=== PATIENT | female | born 1945 | race Caucasian/White ===

== ENCOUNTER → 2016-12-30 | Outpatient (CLI) | payer MEDICARE ==
[2014-08-19 12:16] VITALS: BP 164/77
[~2016-12-30] MED LIST: ASPI-482 PO; ASPI-630 PO; CETI10TA22 PO; CITA10TA4 PO; GABA600T2 PO; LOSA1TAB18 PO; METF500T4 PO; METH-37 PO; NAPR375T3 PO; NEBI5TAB2 PO; OMEP20CA9 PO; PRAV20TA2 PO; TRAZ-90 PO
[2016-12-30 09:21] LABS: ALBUMIN 3.6 g/dL (3.4-5.0); DIRECT BILIRUBIN 0.1 mg/dL (0.0-0.2); TOTAL BILIRUBIN 0.5 mg/dL (0.2-1.0); TOTAL PROTEIN 6.9 g/dL (6.4-8.2)
== END | disposition home or self-care (01) ==
LOC: LAB 08:43
PROVIDERS: ATTEND Internal Medicine
DX: E78.5 Hyperlipidemia, unspecified (principal)
CPT/HCPCS: 36415; 80061; 80076

== ENCOUNTER → 2017-01-27 | Outpatient (CLI) | payer MEDICARE ==
[2014-08-19 12:16] VITALS: BP 164/77
[2017-01-27 15:20] LABS: GFR 54.8; POTASSIUM 4.1 mmol/L (3.5-5.1)
== END | disposition home or self-care (01) ==
LOC: LAB 14:23
PROVIDERS: ATTEND Nurse Practitioner
DX: I10 Essential (primary) hypertension (principal)
CPT/HCPCS: 36415; 80048

== ENCOUNTER → 2017-11-17 | Outpatient (CLI) | payer MEDICARE ==
[2014-08-19 12:16] VITALS: BP 164/77
[~2017-11-17] MED LIST changes: +BUPIVACAINE MPF 0.25% 10 ML VIAL. ONE; +IOHEXOL 300 MG/ML 50 ML VIAL. ONE; +LIDOCAINE 1% PF 30 ML VIAL. ONE; -LOSA1TAB18 PO; +LOSA1TAB25 PO; +NAPR-695 PO; -NAPR375T3 PO; +methylPREDNISolone ACETATE 40 MG/ML VIAL. ONE
== END ==
LOC: SURG 13:21
PROVIDERS: ATTEND Anesthesiology
DX: M46.1 Sacroiliitis, not elsewhere classified (principal); E11.9 Type 2 diabetes mellitus without complications; Z95.5 Presence of coronary angioplasty implant and graft
CPT/HCPCS: 27096; J1030; J2001; J3490; Q9967

== ENCOUNTER → 2017-12-17 | Outpatient (CLI) | payer MEDICARE ==
[2014-08-19 12:16] VITALS: BP 164/77
[~2017-12-17] MED LIST changes: -BUPIVACAINE MPF 0.25% 10 ML VIAL. ONE; -IOHEXOL 300 MG/ML 50 ML VIAL. ONE; -LIDOCAINE 1% PF 30 ML VIAL. ONE; -methylPREDNISolone ACETATE 40 MG/ML VIAL. ONE
--- NOTE | 2017-12-17 14:08 | RAD ---
Bone densitometry scan, 12/17/2017: History: Postmenopausal screening The lumbar spine, right hip and left radius were examined utilizing a DEXA technique. The bone mineral density in the lumbar spine as measured from the L1-L4 levels is 1.23 g/sq cm. This yields a T score of 0.4 which is in the normal range. The limited image demonstrates patchy areas of increased density, much of which is probably arthritic in nature. This has worsened at the L2 level since the 12/18/2015 study. This tends to elevate the bone mineral density measurements. The bone mineral density at the unaffected L3 level probably more accurately reflects the patient's overall bone mineral density status. At that level the T score is -1.3 compatible with osteopenia. On the previous study of 12/18/2015 the L3 T score was - 1.2. The total T score at the right hip is- 1.0 which is borderline for osteopenia. The right hip T score on the 12/18/2015 study was- 0.9. The total T score for the right radius on today's exam is -1.5, compatible with osteopenia. IMPRESSION: 1. Mild osteopenia as described above. 2. Increasing density at the L2 level which may be on a degenerative, posttraumatic or metastatic basis. Correlation with lumbar spine radiographs is suggested.
--- NOTE | 2017-12-17 15:22 | RAD ---
DATE: 12/17/2017 EXAM: MAMMO GABRIELA SCREENING BILATERAL HISTORY: Routine screening COMPARISON: 10/15/2016 This study was interpreted with the benefit of Computerized Aided Detection (CAD). The breast parenchyma shows scattered fibroglandular densities. Breast parenchyma level B. FINDINGS: 2-D and 3-D tomosynthesis imaging was performed in CC and MLO projections. No suspicious breast densities are architectural distortion is seen. Scattered benign type calcifications are present. No malignant type microcalcifications are evident. IMPRESSION: Stable mammograms without evidence of malignancy. BI-RADS CATEGORY: 2 BENIGN FINDING(S) RECOMMENDED FOLLOW-UP: 12M 12 MONTH FOLLOW-UP PQRS compliance statement: Patient information was entered into a reminder system with a target due date for the next mammogram. Mammography is a sensitive method for finding small breast cancers, but it does not detect them all and is not a substitute for careful clinical examination. A negative mammogram does not negate a clinically suspicious finding and should not result in delay in biopsying a clinically suspicious abnormality. "Our facility is accredited by the [employer] Mammography Program."
== END | disposition home or self-care (01) ==
LOC: DXRAD 12:57
PROVIDERS: ATTEND Family Medicine
DX: Z12.31 Encounter for screening mammogram for malignant neoplasm of breast (principal); Z13.820 Encounter for screening for osteoporosis; M85.80 Other specified disorders of bone density and structure, unspecified site; Z78.0 Asymptomatic menopausal state
CPT/HCPCS: 77063; 77067; 77080

== ENCOUNTER 2018-05-06 12:06 | Emergency (ER) | payer MEDICARE ==
[~2018-05-06 12:06] MED LIST changes: +METF500T16 PO; -METF500T4 PO; +TRAZ-86 PO; -TRAZ-90 PO
[2018-05-06 12:38] LABS: BASO # 0.1 x10^3/uL (0.0-0.2); BASO % 1 % (0-3); EOS # 0.3 x10^3/uL (0.0-0.7); EOS % 4 % (0-3); HEMATOCRIT 39.4 % (36.0-47.0); HEMOGLOBIN 13.2 g/dL (12.0-15.5); LYMPH # 2.6 x10^3/uL (1.0-4.8); LYMPH % 33 % (24-48); MEAN CORPUSCULAR HEMOGLOBIN 30 pg (25-35); MEAN CORPUSCULAR HGB CONC 34 g/dL (31-37); MEAN CORPUSCULAR VOLUME 90 fL (79-100); MONO # 0.7 x10^3/uL (0.0-1.1); MONO % 9 % (0-9); NEUT # 4.2 x10^3uL (1.8-7.7); NEUT % 53 % (31-73); PLATELET COUNT 231 x10^3/uL (140-400); RED BLOOD COUNT 4.37 x10^6/uL (3.50-5.40); RED CELL DISTRIBUTION WIDTH 13.2 % (11.5-14.5); WHITE BLOOD COUNT 7.9 x10^3/uL (4.0-11.0)
--- NOTE | 2018-05-06 12:41 | PHYS DOC ---
Past History Past Medical History: Arthritis, COPD, Diabetes, Fibromyalgia, GERD, Hypertension, [place] Past Surgical History: Appendectomy, Cholecystectomy, Hysterectomy, Tonsillectomy Smoking: Cigarettes Alcohol Use: Occasionally Drug Use: None Adult General Chief Complaint Chief Complaint: CHEST PAIN HPI HPI 72-year-old female presenting to the emergency department today with chest pain intermittently for about 7 days. She describes it as squeezing pressure sensation that is nonradiating. It comes and goes. She has a history of [place] with stenting in the past. She has nitroglycerin but has not tried that for her chest pain because it . She does take a baby aspirin every day. She denies fevers chills or cough. The pain is mild and improving currently. She denies unilateral leg swelling hemoptysis personal or family history of blood clotting disorders. She denies recent immobilization or surgery. Review of systems is negative for fevers chills nausea vomiting. She denies diaphoresis or sweatiness of the skin. All other review of systems is negative unless otherwise noted in history of present illness. ED course: 72-year-old female presenting the emergency department today with chest pain. Patient is afebrile with normal heart rate here in the emergency department. She is well-appearing. Clear lungs bilaterally. Regular rate and rhythm on cardiac auscultation. Abdomen is soft nondistended nontender palpation. EKG obtained and reviewed by myself shows sinus rhythm with a regular rate. ST segments are congruent. Not suggestive of ACS. Blood work sent. Chest x-ray ordered. Chest x-ray unremarkable. Troponin is negative. Patient developed chest pain again while in the emergency department. Repeat EKG was obtained. Repeat EKG at 1356 shows sinus rhythm. Similar to previous. No acute evolving changes. Nitroglycerin given for the patient's pain. I spoke with Dr. Bryan who accepts the patient for admission. I also spoke to cardiology on-call, Joselin [facility] returned the call. He is aware of the case. I communicated Dr. Bryan that the patient has an elevated d-dimer and because the patient's creatinine is elevated we are unable to get an angiogram the chest at this time. Patient will need a VQ scan to rule out pulmonary embolism. pt is not hypoxic or tachycardic here in our emergency department. Review of Systems Review of Systems SEE ABOVE. Allergies Allergies Allergies Coded Allergies Type Severity Reaction Last Updated Verified amoxicillin Allergy Unknown 09/04/14 Yes codeine Allergy Unknown 09/04/14 Yes cyclobenzaprine Adverse Reaction Intermediate 08/19/14 Yes latex Adverse Reaction Intermediate 08/19/14 Yes Physical Exam Physical Exam SEE ABOVE Constitutional: Well developed, well nourished, no acute distress, non-toxic appearance. [] HENT: Normocephalic, atraumatic, bilateral external ears normal, oropharynx moist, no oral exudates, nose normal. [] Eyes: PERRLA, EOMI, conjunctiva normal, no discharge. [] Neck: Normal range of motion, no tenderness, supple, no stridor. [] Cardiovascular:Heart rate regular rhythm, no murmur [] Lungs & Thorax: Bilateral breath sounds clear to auscultation [] Abdomen: Bowel sounds normal, soft, no tenderness, no masses, no pulsatile masses. [] Skin: Warm, dry, no erythema, no rash. [] Back: No tenderness, no CVA tenderness. [] Extremities: No tenderness, no cyanosis, no clubbing, ROM intact, no edema. [] Neurologic: Alert and oriented X 3, normal motor function, normal sensory function, no focal deficits noted. [] Psychologic: Affect normal, judgement normal, mood normal. [] EKG EKG [] Radiology/Procedures Radiology/Procedures [] Course & Med Decision Making Course & Med Decision Making Pertinent Labs and Imaging studies reviewed. (See chart for details) [] Dragon Disclaimer Dragon Disclaimer This electronic medical record was generated, in whole or in part, using a voice recognition dictation system. Departure Departure: Impression: Primary Impression: Chest pain Disposition: XFER [facility]HT-TRM HOSP ([facility]) Condition: STABLE Referrals: ELIUD DIXON MD (PCP) MARGO FONTENOT MD May 06, 2018 12:41
[2018-05-06 12:47] LABS: ALBUMIN 3.1 g/dL (3.4-5.0); CALCIUM 8.9 mg/dL (8.5-10.1); CREATININE 1.2 mg/dL (0.6-1.0); DIRECT BILIRUBIN 0.1 mg/dL (0.0-0.2); GFR 44.3; POTASSIUM 4.1 mmol/L (3.5-5.1); TOTAL BILIRUBIN 0.4 mg/dL (0.2-1.0); TOTAL PROTEIN 7.2 g/dL (6.4-8.2)
--- NOTE | 2018-05-06 12:52 | RAD ---
EXAM: Chest, single view. HISTORY: Chest pain. COMPARISON: 02/26/2015. FINDINGS: A frontal view of the chest is obtained. There is no infiltrate, pleural effusion or pneumothorax. The heart is normal in size. IMPRESSION: No acute pulmonary finding. Electronically signed by: Janelle Mc MD (05/06/2018 12:49 PM) [place] [id number]
[2018-05-06 12:58] VITALS: BP 129/64
[2018-05-06] MEDS ORDERED: ASPIRIN 81 MG TAB.CHEW PO ONE (13:00)
[2018-05-06] MEDS ORDERED: CYAN10005 PO (13:32)
[2018-05-06] MEDS ORDERED: OMEP40CA5 PO (13:32)
[2018-05-06] MEDS ORDERED: CITA10TA8 PO (13:32)
[2018-05-06] MEDS ORDERED: CALC-157 PO (13:32)
[2018-05-06] MEDS ORDERED: ASPI-630 PO (13:32)
[2018-05-06] MEDS ORDERED: CHOL10003 PO (13:32)
[2018-05-06] MEDS ORDERED: LOSA100T7 PO (13:32)
[2018-05-06] MEDS ORDERED: CARV6.252 PO (13:32)
[2018-05-06] MEDS ORDERED: MECL25TA3 PO (13:32)
[2018-05-06] MEDS ORDERED: FLUC100T7 PO (13:32)
[2018-05-06] MEDS ORDERED: ATORVASTATIN CA80 MG PO (13:32)
[2018-05-06] MEDS ORDERED: TRAZ-86 PO (13:32)
[2018-05-06] MEDS ORDERED: GABA600T2 PO (13:32)
[2018-05-06] MEDS ORDERED: TIOT18CA IH (13:32)
[2018-05-06] MEDS ORDERED: NITROGLYCERIN SUBLINGUAL 0.4 MG BOTTLE OF 25. SL ONE (14:00)
--- NOTE | 2018-05-06 14:09 | EKG ---
[address] [address] Test Date: 2018-05-06 Test Time: 13:56:17 Pat Name: ENEDINA ROCHA Department: Room: Gender: F Placement Specialist: : [id number] Requested By: MARGO FONTENOT Order Number: [id number] Reading MD: Matthew Fernandez MD Measurements Intervals [place] Rate: 69 P: 68 [place]: 182 QRS: -43 QRSD: 84 T: 31 QT: 424 QTc: 456 Interpretive Statements SINUS RHYTHM ABNORMAL LEFT AXIS DEVIATION QRS(T) CONTOUR ABNORMALITY CONSISTENT WITH INFERIOR INFARCT PROBABLY OLD ABNORMAL ECG Electronically Signed On 05-07-2018 12:24:41 CDT by Matthew Fernandez MD
--- NOTE | 2018-05-06 14:11 | EKG ---
[address] [address] Test Date: 2018-05-06 Test Time: 12:13:12 Pat Name: ENEDINA ROCHA Department: Room: Gender: F Licensed Guide: : 1945 Requested By: MARGO FONTENOT Order Number: [id number] Reading MD: Matthew Fernandez MD Measurements Intervals [place] Rate: 81 P: 66 [place]: 178 QRS: -67 QRSD: 126 T: 48 QT: 392 QTc: 461 Interpretive Statements SINUS RHYTHM ABNORMAL LEFT AXIS DEVIATION RIGHT BUNDLE BRANCH BLOCK RVH WITH REPOLARIZATION ABNORMALITY QRS(T) CONTOUR ABNORMALITY CONSISTENT WITH INFERIOR INFARCT PROBABLY OLD ABNORMAL ECG Electronically Signed On 05-07-2018 12:14:41 CDT by Matthew Fernandez MD
== END 2018-05-06 16:23 | disposition short-term general hospital (02) ==
LOC: ER 12:06
DX: R07.9 Chest pain, unspecified (principal); M19.90 Unspecified osteoarthritis, unspecified site; J44.9 Chronic obstructive pulmonary disease, unspecified; E11.9 Type 2 diabetes mellitus without complications; M79.7 Fibromyalgia; K21.9 Gastro-esophageal reflux disease without esophagitis; I10 Essential (primary) hypertension; I25.2 Old myocardial infarction; F17.210 Nicotine dependence, cigarettes, uncomplicated; Z88.1 Allergy status to other antibiotic agents; Z88.5 Allergy status to narcotic agent; Z88.8 Allergy status to other drugs, medicaments and biological substances; Z91.040 Latex allergy status
CPT/HCPCS: 36415; 71045; 80048; 80076; 83690; 84484; 85025; 85379; 93005; 99285

== ENCOUNTER → 2018-11-29 | Outpatient (CLI) | payer MEDICARE ==
[~2018-11-29] MED LIST changes: +ATORVASTATIN CA80 MG PO; +CALC-157 PO; +CARV6.2541 PO; +CHOL10003 PO; +CITA10TA8 PO; +CYAN10005 PO; +FLUC100T7 PO; -GABA600T2 PO; +GABA600T7 PO; +LOSA100T14 PO; +MECL25TA3 PO; +OMEP40CA5 PO; +TIOT18CA IH
--- NOTE | 2018-11-29 16:25 | RAD ---
RIBS LEFT, CHEST PA LATERAL History: Fall yesterday, injury to left shoulder and breast Comparison: May 06, 2018 Two-view chest Findings: 2 views of the chest are submitted. There is no infiltrate, pleural fluid, pneumothorax. There is evidence for calcification near aortic arch. Heart size is within normal limits. IMPRESSION: 1. No acute radiographic abnormality is identified. Left rib radiographs: 3 views left ribs are submitted. No displaced left rib fracture is identified by radiographs. There has been vertebroplasty at L2. There are clips in the right upper quadrant of the abdomen. Impression: 1. No displaced left rib fracture is identified by radiographs. Electronically signed by: Waylon Singleton MD (11/29/2018 4:23 PM) [facility]
== END | disposition home or self-care (01) ==
LOC: RAD 14:09
PROVIDERS: ATTEND Family Medicine
DX: R07.82 Intercostal pain (principal)
CPT/HCPCS: 71046; 71100

== ENCOUNTER → 2019-04-11 | Outpatient (CLI) | payer MEDICARE ==
[~2019-04-11] MED LIST changes: +CYAN-25 PO; -CYAN10005 PO; +OMEP20CA10 PO; -OMEP20CA9 PO
--- NOTE | 2019-04-11 16:34 | RAD ---
Exam: CT left lower extremity without contrast INDICATION: Left hip pain TECHNIQUE: Sequential axial images through the left hip obtained without IV contrast. Sagittal and coronal reformatted images were reconstructed from the axial data and reviewed. Comparisons: None FINDINGS: Bone mineralization is normal. No acute or healed fractures. Visualized intrapelvic structures are unremarkable. Soft tissues are unremarkable. Left hip joint, pubic symphysis and sacroiliac joints are well-maintained. IMPRESSION: No acute osseous abnormality. Exposure: One or more of the following in the visualized dose reduction techniques were utilized for this examination: 1. Automated exposure control 2. Adjustment of the MA and/or KV according to patient size 3. Use of iterative of reconstructive technique Electronically signed by: Alonzo Rucker MD (04/11/2019 4:31 PM) [facility]
--- NOTE | 2019-04-11 16:36 | RAD ---
Indication: Shoulder pain status post fall TECHNIQUE: 2 views of the right humerus and 3 views of the right shoulder COMPARISON: None FINDINGS: No acute fracture or dislocation. No significant acromioclavicular or glenohumeral joint also arthritis. Visualized right lung is clear. IMPRESSION: As above. Electronically signed by: Michael Gould DO (04/11/2019 4:34 PM) [facility]
== END | disposition home or self-care (01) ==
LOC: CT 15:58
PROVIDERS: ATTEND Family Medicine
DX: M25.511 Pain in right shoulder (principal); M25.552 Pain in left hip; M79.601 Pain in right arm; W19.XXXA Unspecified fall, initial encounter; Y93.89 Activity, other specified; Y92.89 Other specified places as the place of occurrence of the external cause; Y99.8 Other external cause status
CPT/HCPCS: 73030; 73060; 73700

== ENCOUNTER → 2019-04-28 | Outpatient (CLI) | payer MEDICARE ==
[2019-04-28 12:32] LABS: ALBUMIN 3.4 g/dL (3.4-5.0); ALBUMIN/GLOBULIN RATIO 0.8 (1.0-1.7); CALCIUM 9.7 mg/dL (8.5-10.1); CREATININE 1.1 mg/dL (0.6-1.0); GFR 48.8; POTASSIUM 4.9 mmol/L (3.5-5.1); TOTAL BILIRUBIN 0.4 mg/dL (0.2-1.0); TOTAL PROTEIN 7.7 g/dL (6.4-8.2)
== END | disposition home or self-care (01) ==
LOC: LAB 11:03
PROVIDERS: ATTEND Nurse Practitioner
DX: E78.5 Hyperlipidemia, unspecified (principal)
CPT/HCPCS: 36415; 80053; 80061

== ENCOUNTER → 2019-05-25 | Outpatient (CLI) | payer MEDICARE ==
[~2019-05-25] MED LIST changes: +OMEP40CA45 PO; -OMEP40CA5 PO
[2019-05-25 12:40] LABS: CALCIUM 9.4 mg/dL (8.5-10.1); GFR 54.5; POTASSIUM 4.3 mmol/L (3.5-5.1)
== END | disposition home or self-care (01) ==
LOC: LAB 12:09
PROVIDERS: ATTEND Internal Medicine
DX: I10 Essential (primary) hypertension (principal)
CPT/HCPCS: 36415; 80048

== ENCOUNTER → 2019-05-27 | Outpatient (CLI) | payer MEDICARE ==
--- NOTE | 2019-05-27 19:14 | RAD ---
DATE: 05/27/2019 EXAM: MAMMO GABRIELA SCREENING BILATERAL HISTORY: Routine screening COMPARISON: 10/15/2016, 12/17/2017 mammographic exams This study was interpreted with the benefit of Computerized Aided Detection (CAD). Breast Density: SCATTERED The breast parenchyma shows scattered fibroglandular densities. Breast parenchyma level B. FINDINGS: No mass, calcification, or distortion in the interval. IMPRESSION: Stable BI-RADS CATEGORY: 1 NEGATIVE RECOMMENDED FOLLOW-UP: 12M 12 MONTH FOLLOW-UP PQRS compliance statement: Patient information was entered into a reminder system with a target due date for the next mammogram. Mammography is a sensitive method for finding small breast cancers, but it does not detect them all and is not a substitute for careful clinical examination. A negative mammogram does not negate a clinically suspicious finding and should not result in delay in biopsying a clinically suspicious abnormality. "Our facility is accredited by the [employer] Mammography Program."
== END | disposition home or self-care (01) ==
LOC: MAMMO 10:19
PROVIDERS: ATTEND Family Medicine
DX: Z12.31 Encounter for screening mammogram for malignant neoplasm of breast (principal)
CPT/HCPCS: 77063; 77067

== ENCOUNTER → 2019-09-07 | Outpatient (CLI) | payer MEDICARE ==
[~2019-09-07] MED LIST changes: -CETI10TA22 PO; +CETI10TA24 PO; +MECL-75 PO; -MECL25TA3 PO; -OMEP20CA10 PO; +OMEP20CA16 PO; +TRAZ-125 PO; -TRAZ-86 PO
[2019-09-07 14:54] LABS: CALCIUM 8.9 mg/dL (8.5-10.1); GFR 54.5; POTASSIUM 4.6 mmol/L (3.5-5.1)
== END | disposition home or self-care (01) ==
LOC: LAB 14:02
PROVIDERS: ATTEND Nurse Practitioner
DX: I10 Essential (primary) hypertension (principal)
CPT/HCPCS: 36415; 80048

== ENCOUNTER → 2019-10-03 | Outpatient (CLI) | payer MEDICARE ==
[2019-10-03 14:32] LABS: CALCIUM 9.1 mg/dL (8.5-10.1); CREATININE 1.1 mg/dL (0.6-1.0); GFR 48.7; POTASSIUM 4.1 mmol/L (3.5-5.1)
== END | disposition home or self-care (01) ==
LOC: LAB 13:19
PROVIDERS: ATTEND Surgery
DX: I65.23 Occlusion and stenosis of bilateral carotid arteries (principal)
CPT/HCPCS: 36415; 80048

== ENCOUNTER → 2019-10-20 | Outpatient (CLI) | payer MEDICARE ==
[~2019-10-20] MED LIST changes: +IOHEXOL 350 MG/ML 100 ML VIAL. IV ONE
--- NOTE | 2019-10-21 11:18 | RAD ---
Exam: CT ANGIOGRAPHY NECK Date: 10/20/2019 12:00 AM Indication: Carotid artery stenosis Comparison: None Technique: CT angiogram of neck was obtained with bolus injection of 75 mL of Isovue-370. The images were sent to workstation and multiplanar reconstructions were obtained. Multiplanar reconstruction images to include MIP and 3-D reconstruction images are submitted. One or more of the following dose reduction techniques were utilized: Automated exposure control (AEC), Adjustment of mA and/or kV according to patient size, Use of iterative reconstruction technique such as ASiR, CT scan done according to ALARA and image gently/image wisely Findings: Right carotid: The right common carotid artery is patent and normal caliber. Atherosclerosis of the carotid bifurcation and proximal ICA with ulcerated plaque. 60 percent stenosis of the right internal carotid artery per NASCET criteria. The right external carotid artery is patent. Left carotid: The left common carotid artery is patent and normal caliber. Atherosclerosis of the carotid bifurcation. 70 percent stenosis of the left internal carotid artery per NASCET criteria. The left external carotid artery is patent. Right vertebral: The right vertebral artery is patent and normal caliber. Left vertebral: The left vertebral artery is patent and normal caliber. Mild atherosclerosis of the aortic arch. The origins of the brachiocephalic and subclavian arteries are atherosclerotic, with 25 percent narrowing of the subclavian artery. No cervical lymphadenopathy. 1.2 cm right thyroid nodule, not requiring further evaluation based on size criteria. The parotid and submandibular glands are normal. The visualized aerodigestive tract is unremarkable. Mild to moderate multilevel degenerative disc height loss. Multilevel disc protrusions and marginal osteophytes results in multilevel spinal canal stenosis. Multilevel uncovertebral and facet arthrosis with multilevel neural foraminal narrowing. Centrilobular emphysema in the visualized lung apices. Impression: Atherosclerosis of the left ICA with 70 percent stenosis. Atherosclerosis and ulcerated plaque of the right ICA with 60 percent stenosis. PQRS Compliance Statement - Stenosis calculations for CT, MR and conventional angiography are based upon measurement of the distal ICA diameter in accordance with the NASCET methodology. Electronically signed by: Waylon Almendarez MD (10/21/2019 11:15 AM) [id number]
== END | disposition home or self-care (01) ==
LOC: CT 13:07
PROVIDERS: ATTEND Surgery
DX: I65.23 Occlusion and stenosis of bilateral carotid arteries (principal); E04.1 Nontoxic single thyroid nodule; I70.0 Atherosclerosis of aorta; M19.90 Unspecified osteoarthritis, unspecified site; J43.2 Centrilobular emphysema; M25.78 Osteophyte, vertebrae; M48.00 Spinal stenosis, site unspecified
CPT/HCPCS: 70498; Q9967

== ENCOUNTER → 2019-11-04 | Outpatient (CLI) | payer MEDICARE ==
[~2019-11-04] MED LIST changes: -IOHEXOL 350 MG/ML 100 ML VIAL. IV ONE
--- NOTE | 2019-11-04 12:19 | RAD ---
EXAM: Left lower extremity venous Doppler sonogram. HISTORY: Pain and swelling. TECHNIQUE: Negrete scale and color Doppler sonographic evaluation of the left lower extremity veins with spectral waveform analysis was performed. FINDINGS: There is normal color flow, normal compressibility and there are normal spectral waveforms in the common femoral, superficial femoral, popliteal, posterior tibial and greater saphenous veins. IMPRESSION: No Doppler evidence of lower extremity deep venous thrombosis. Electronically signed by: Janelle Mc MD (11/04/2019 12:16 PM) [id number]
--- NOTE | 2019-11-04 12:30 | RAD ---
EXAM: Left knee, 3 views. HISTORY: Pain. COMPARISON: None. FINDINGS: 3 views of the left knee are obtained. There is no fracture, dislocation or subluxation. There is no joint effusion. IMPRESSION: No acute osseous finding. Electronically signed by: Janelle Mc MD (11/04/2019 12:28 PM) [id number]
== END | disposition home or self-care (01) ==
LOC: US 11:39
PROVIDERS: ATTEND Family Medicine
DX: M25.562 Pain in left knee (principal); M79.605 Pain in left leg
CPT/HCPCS: 73562; 93971

== ENCOUNTER → 2020-04-05 | Outpatient (CLI) | payer MEDICARE ==
[~2020-04-05] MED LIST changes: -CETI10TA24 PO; +CETI10TA74 PO
--- NOTE | 2020-04-05 12:18 | RAD ---
CT SOFT TISSUE NECK WO CONTRST Indication: Enlarged lymph node Technique: Noncontrast CT imaging was performed of the neck, multiplanar reconstruction images submitted. One or more of the following individualized dose reduction techniques were utilized for this examination: 1. Automated exposure control 2. Adjustment of the mA and/or kV according to patient size 3. Use of iterative reconstruction technique. Comparison: None other than chest CT February 26, 2015 Findings: BB was placed at site of palpable concern which is located in the superior left neck inferior to the level of the ear. Deep to the BB, there is soft tissue thickening as well as approximate 1.1 cm AP by 1.5 cm transverse by 2.2 cm CC mass with internal density measurements 33 Hounsfield units, located in or just at the posterior margin of the superficial left parotid gland. There is asymmetric hazy and strandy change associated with the left parotid gland compared with the right. There are some small nodules or nodes of the superficial right parotid gland, largest of these about 0.5 cm short axis dimension. There are some other subcentimeter nodes of the bilateral neck. There is some nodularity of the thyroid gland bilaterally, largest hypodense focus on the right about 1.4 cm somewhat larger in size. There is a hyperdense lesion of the superior left thyroid gland about 0.7 cm. There is emphysema of the visualized lung apices. There is cervical degenerative disc disease and spondylosis greatest at C5-6 and C6-7, central canal stenosis at C5-6 estimated about 6 to 7 mm and to lesser degree at C6-7. There is multilevel cervical facet degenerative change. There is uncovertebral degenerative change greatest at C5-6 and C6-7. There is neural foramina compromise greatest bilaterally at C5-6. There is atherosclerotic calcification of the carotid arteries in the neck bilaterally. There is mild levoscoliosis of the cervical spine. Mastoid air cells and the visualized paranasal sinuses are aerated. IMPRESSION: 1. There is enlarged node versus mass along the posterior aspect of the superficial left parotid gland. Imaging cannot reliably distinguish benign versus malignant etiologies. There is also inflammatory change associated with the left parotid gland suggestive of parotiditis. There are some small nodes or nodules of the superficial right parotid gland. 2. There is degenerative disc disease and spondylosis of the cervical spine greatest at C5-6 and C6-7 at which there is spinal stenosis greatest at C5-6. Uncovertebral degenerative change contributes to neural foramina compromise greatest bilaterally at C5-6. 3. There are bilateral thyroid nodules. Electronically signed by: Waylon Singleton MD (04/05/2020 12:15 PM) [id number]
== END | disposition home or self-care (01) ==
LOC: CT 10:53
PROVIDERS: ATTEND Family Medicine
DX: E04.2 Nontoxic multinodular goiter (principal); J43.8 Other emphysema; R59.0 Localized enlarged lymph nodes; M50.322 Other cervical disc degeneration at C5-C6 level; M48.02 Spinal stenosis, cervical region; M47.812 Spondylosis without myelopathy or radiculopathy, cervical region; M41.82 Other forms of scoliosis, cervical region; I25.10 Atherosclerotic heart disease of native coronary artery without angina pectoris
CPT/HCPCS: 70490

== ENCOUNTER → 2021-03-04 | Outpatient (CLI) | payer MEDICARE ==
[~2021-03-04] MED LIST changes: -OMEP40CA45 PO; +OMEP40CA7 PO
--- NOTE | 2021-03-04 15:10 | RAD ---
EXAM: Right ribs, 3 views; right shoulder, 3 views. HISTORY: Pain. COMPARISON: None. FINDINGS: 3 views of the right ribs and right shoulder obtained. There is no convincing acute fractur e, dislocation or subluxation. There is no pleural effusion or pneumothorax. The heart is normal in s ize. There is a mild compression fracture with vertebroplasty changes at L2. There are cholecystectom y clips. IMPRESSION: No acute osseous finding. Electronically signed by: Janelle Mc MD (03/04/2021 3:08 PM) [id number]
== END ==
LOC: RAD 13:57
PROVIDERS: ATTEND Physician Assistant
DX: R07.81 Pleurodynia (principal); M25.511 Pain in right shoulder; M48.56XA Collapsed vertebra, not elsewhere classified, lumbar region, initial encounter for fracture
CPT/HCPCS: 71100; 73030

== ENCOUNTER → 2021-04-05 | Outpatient (CLI) | payer MEDICARE ==
--- NOTE | 2021-04-05 13:25 | RAD ---
PQRS Compliance Statement: One or more of the following individualized dose reduction techniques were utilized for this examinat ion: 1. Automated exposure control 2. Adjustment of the mA and/or kV according to patient size 3. Use of iterative reconstruction technique CT LOW DOSE LUNG SCREEN 04/05/2021 11:12 AM Indication: Nicotine dependence for 40 years COMPARISON: CT chest 02/26/2015. TECHNIQUE: Multiple axial CT images of the chest were obtained without intravenous contrast utilizing low-dose technique. Coronal and sagittal reformats are provided. FINDINGS: Stable 4 mm solid noncalcified pleura nodule in the left lower lobe (series 5, image 236). There is a 4 mm solid noncalcified pulmonary nodule in the lateral right lower lobe, stable (series 5, image 25 6). There is a 4 mm subpleural solid noncalcified pulmonary nodule in the right middle lobe anteriorl y (series 5, image 233). Along the minor fissure there are 2 adjacent solid noncalcified pulmonary no dules measuring up to 6 mm (series 5, image 199) which are stable. Mild centrilobular pulmonary emphy sema. No new or enlarging solid noncalcified pulmonary nodules. No pleural effusions, pulmonary vascu lar congestion or pneumothorax. Stable fusiform thickening of the left adrenal gland compatible with lipid rich adrenal adenoma. No suspicious osseous abnormality is identified. L3 spinal augmentation c hanges are partially profiled. IMPRESSION: No new or enlarging solid noncalcified pulmonary nodules. Stable solid noncalcified pulmonary nodules measuring up to 6 mm. Category 2, benign appearance or behavior. Recommend low-dose chest CT in one year. Mild centrilobular pulmonary emphysema. Electronically signed by: Katarzyna Parish MD (04/05/2021 1:23 PM) [id number]
== END ==
LOC: CT 11:06
PROVIDERS: ATTEND Family Medicine
DX: Z12.2 Encounter for screening for malignant neoplasm of respiratory organs (principal); R91.8 Other nonspecific abnormal finding of lung field; J43.2 Centrilobular emphysema; Z87.891 Personal history of nicotine dependence
CPT/HCPCS: 71271

== ENCOUNTER → 2021-11-26 | Outpatient (CLI) | payer MEDICARE ==
[~2021-11-26] MED LIST changes: -CITA10TA4 PO; +CITA10TA5 PO
[2021-11-26 12:35] LABS: ALBUMIN 3.3 g/dL (3.4-5.0); CALCIUM 9.1 mg/dL (8.5-10.1); CREATININE 1.1 mg/dL (0.6-1.0); GFR 48.4; POTASSIUM 4.3 mmol/L (3.5-5.1); TOTAL BILIRUBIN 0.5 mg/dL (0.2-1.0); TOTAL PROTEIN 6.7 g/dL (6.4-8.2)
[2021-11-27 01:07] LABS: HEMOGLOBIN A1C 6.7 % (4.8-5.6)
[2021-11-27 19:45] LABS: CHOLESTEROL/HDL RATIO 2.7
== END ==
LOC: LAB 11:30
PROVIDERS: ATTEND Nurse Practitioner
DX: N18.2 Chronic kidney disease, stage 2 (mild) (principal); E78.5 Hyperlipidemia, unspecified; R73.03 Prediabetes; Z79.899 Other long term (current) drug therapy
CPT/HCPCS: 36415; 80053; 80061; 83036